=== PATIENT | female | born 1940 | race Caucasian/White ===

== ENCOUNTER 2018-04-06 09:07 | Day surgery (SDC) | payer MEDICARE, OTHER, SELFPAY ==
--- NOTE | 2018-04-04 09:35 | POEE_ITS ---
History of Present Illness Chief Complaint: Progressive decreased vision, left eye Narrative: The patient is a 77-year-old lady who presented with complaints of progressive decreased vision in both eyes at both distance and near. She notes blurred vision in both eyes and significant difficulty with glare. On examination she was noted to have nuclear and cortical cataracts OU with posterior subcapsular cataract in the left eye. Corrected visual acuity measured 20/50 OD, 20/40 OS. She was significantly symptomatic that she desires cataract surgery and attempt to improve and maximize her vision. Of note, she has a history of glaucoma, which is maintained on atenolol OU. NOTE: The Chief Complaint, HPI, Past Medical History, Past Surgical History, Family History, Social History, Medications, and complete Ophthalmic Exam with detailed Assessment and Plan have already been documented in the patient's outpatient ophthalmic record and are not covered again in detail here. PFSH Medical History Cortical cataract of left eye (Acute) Posterior subcapsular age-related cataract of left eye (Acute) Nuclear sclerotic cataract of left eye (Acute) Primary open angle glaucoma (POAG) of left eye, mild stage (Chronic) Meds Home Medications Medication Instructions Recorded Confirmed Type cetirizine 5 mg PO PRN PRN 03/31/18 04/01/18 History halobetasol propionate 1 applic TOPICAL DAILY 03/31/18 04/01/18 History ibandronate [Boniva] 150 mg PO QMONTH 03/31/18 04/01/18 History indomethacin 25 mg PO BID 03/31/18 04/01/18 History levothyroxine 75 mcg PO DAILY 03/31/18 04/01/18 History multivitamin 1 cap PO DAILY 03/31/18 04/01/18 History omeprazole 20 mg PO DAILY 03/31/18 04/01/18 History simvastatin 20 mg PO HS 03/31/18 04/01/18 History timolol 1 drp OPHTHALMIC (EYE) BID 03/31/18 04/01/18 History Allergies Allergy/AdvReac Type Severity Reaction Status Date / Time No Known Allergies Allergy Unverified 04/01/18 13:15 Exam OCULAR EXAM:: Visual acuity at distance: Corrected visual acuity is 20/50 OD, 20 /40 OS. Pupils: Pupils equal, round, and reactive without afferent pupillary defect IOP: 13 OD, 14 OS. Extraocular Motility: Normal Pertinent Slit Lamp Findings: Significant for mildly narrow anterior chamber angles. Pupils dilate to 6 mm OU. 1+ nuclear/cortical cataract is present OD. 2+ nuclear with 2+ cortical cataract and 1+ posterior subcapsular cataract is present OS. Dilated Funduscopic Examination: Disc cupping is 0.7 OD with good rim. Disc cupping is 0.8 OS with some thinning of the inferior rim. The optic nerves have good perfusion and normal color. The retinal vasculature is normal without significant tortuosity or abnormality. The maculas are normal in appearance with normal contour and foveal reflex appropriate for age. The peripheral retina and vitreous are normal. BRIGHTNESS ACUITY TESTING (BAT):: Off left eye 20/40 Low: 20/60 Medium: 20/70 High: 20/400 Assessment and Plan (1) Nuclear sclerotic cataract of left eye: Current visit: No Status: Acute Assessment: Visually significant cataract, left eye. Plan: Cataract extraction with intraocular lens implantation, left eye (2) Posterior subcapsular age-related cataract of left eye: Current visit: No Status: Acute Assessment: Visually significant cataract, left eye. Plan: Cataract extraction with intraocular lens implantation, left eye (3) Cortical cataract of left eye: Current visit: No Status: Acute Assessment: Visually significant cataract, left eye. Plan: Cataract extraction with intraocular lens implantation, left eye Note: NOTE:: The details of the planned surgery, including the risks, indications, limitations,expectations,outcome and possible complications were explained to the patient. The patient understands the complications including, but not limited to: infection, hemorrhage, posterior dislocation of the lens or nuclear fragments which may require the intervention of a vitreoretinal surgeon, possible loss of the eye, or from anesthetic complications. The patient has been made aware of the option of not having surgery, that vision following surgery may not be equal to that prior to surgery, and that the planned surgery may not achieve the intended results. Following this discussion, which the patient appeared to understand, the patient wishes to proceed with cataract surgery with lens implantation of the affected eye to improve and maximize vision.
[2018-04-06 09:10] VITALS: BP 136/72; PULSE 68; RESP 18; TEMP 36.2; O2SAT 97
[2018-04-06] MEDS: Lidocaine 2% Jelly 6 ML SYR (10:17)
[2018-04-06] MEDS: Balanced Salt Soln.-PLUS 500 ML BAG (10:20)
[2018-04-06] MEDS: Povidone-Iodine Ophth 30 ML BTL (10:23)
--- NOTE | 2018-04-06 10:40 | W.PM.DSUDISC ---
Discharge Plan Discharge Details Attending Provider: Bernabe Patel Primary Care Provider: SAY WOMACK Home Meds and New Rx's Prescriptions: No Action cetirizine 10 mg Tablet 5 mg PO PRN PRNRF: 0 timolol 0.5 % Drops 1 drp OPHTHALMIC (EYE) BID RF: 0 simvastatin 20 mg Tablet 20 mg PO HS RF: 0 halobetasol propionate 0.05 % Ointment 1 applic TOPICAL DAILY RF: 0 indomethacin 25 mg Capsule 25 mg PO BID RF: 0 omeprazole 20 mg Capsule,Delayed Release(Dr/Ec) 20 mg PO DAILY RF: 0 multivitamin Capsule 1 cap PO DAILY RF: 0 ibandronate [Boniva] 150 mg Tablet 150 mg PO QMONTH RF: 0 levothyroxine 75 mcg Capsule 75 mcg PO DAILY RF: 0 Discharge Instructions Stand Alone Forms: Post-op Topical Cataract, Francisco Javier Concepcion (DSU) DS: Diagnosis Discharge Diagnosis (1) Nuclear sclerotic cataract of left eye: Status: Resolved (2) Posterior subcapsular age-related cataract of left eye: Status: Resolved (3) Cortical cataract of left eye: Status: Resolved
--- NOTE | 2018-04-06 10:44 | ROE_ITS ---
Date of service: 04/06/18 Time of Service: 10:42 Operative Note DATE OF PROCEDURE: 04/06/18 PRE-OP DIAGNOSIS: Cataract, left eye POST-OP DIAGNOSIS: same PROCEDURE: Cataract extraction using phacoemulsification with intraocular lens implant, left eye SURGEON: Bernabe Patel ANESTHESIA: MAC and local (sub-tenon's anesthetic infiltration) PATHOLOGY: none sent COMPLICATIONS: None Patient was transported to: same day Patient's condition: stable Implants: [employer] / [employer] Tecnis [id number] Indications: Progressive decreased vision due to cataract, left eye Procedure Description: CATARACT SURGERY OPERATIVE REPORT PREOPERATIVE DIAGNOSIS: Nuclear/cortical/posterior subcapsular cataract, left eye, symptomatic POSTOPERATIVE DIAGNOSIS: Same OPERATION: Cataract extraction using phacoemulsification with posterior chamber intraocular lens implant, left eye. IOL: IOL Diploma Pharmacy Technician/Model: [employer] Vision / YUNG Tecnis [id number] IOL Power: + 21.5 diopters IOL Serial Number: [id number] Optic Diameter: 6.0mm Haptic/Overall Diameter: 13.0mm PHACO INFO: Mikal [employer] Vision System with OZil and Active Fluidics Cumulative Dispersed Energy (CDE): 11.42 seconds SURGEON: Bernabe Patel MD, LEANA ANESTHESIA: Monitored Anesthesia Care (MAC), with local sub-tenon's anesthetic infiltration COMPLICATIONS: None SPECIMENS: None INDICATIONS FOR PROCEDURE: The patient is a 77-year-old lady with history of open-angle glaucoma who has developed a significant nuclear cortical and posterior subcapsular cataract in the left eye. She notes progressive decreased vision at both distance and near in both eyes, left eye worse than right. She is significantly symptomatically she desires cataract surgery and attempt to improve and maximize her vision. PROCEDURE: The correct surgical eye was identified and marked as the left eye and the pupil was dilated in the preoperative area using mydriatics, cycloplegics, and NSAIDS (except in aspirin allergic patients). The dilated pupil size was 8.0 mm. Oral sedation was administered in the form of an Imprimis MKO Melt (midazolam 3mg/ketamine 25mg/ondansetron 2mg). The patient was brought to the operating room where cardiopulmonary monitoring was instituted and surgical time-out was performed, confirming the correct operative eye and IOL power. Topical anesthesia was administered and ophthalmic povidone-iodine 5% was instilled into the conjunctival fornices. Lidocaine gel was applied to the cornea and the laina-ocular area was prepped with Betadine 10% solution and draped in the usual sterile fashion for intraocular surgery. Steri-strips were used to cover the lashes and lid margins and an adhesive eye drape was placed. Care was taken to isolate the lashes and lid margins under the Steri-strips and adhesive eye drape. A lid speculum was placed between the lids of the operative eye and the Daphne-Bethanie operating microscope was maneuvered into position. Angella scissors were then used to make a conjunctival buttonhole approximately 6mm posterior to the limbus in the inferonasal quadrant. Blunt dissection was carried out to expose bare sclera, and a blunt-tipped sub-tenon? s anesthesia cannula was introduced and passed posteriorly along the globe where non-preserved plain lidocaine was injected into posterior sub-Tenon?s space. A sideport knife was used to make a paracentesis port at the 12:00 postion and the anterior chamber was filled with Healon GV. A 2.4mm keratome knife was used to create a half-thickness groove at the limbus and then to construct a three-plane near-clear corneal tunnel extending 2.0mm into clear cornea at the 3:00 position. A flap was raised on the anterior capsule and capsulorhexis forceps were used to complete a continuous curvilinear capsulorhexis of 5.5 mm. Balanced salt solution was then used to perform cortical cleaving hydrodissection and nuclear hydrodelineation until the lens could be freely rotated within the capsular bag. The lens nucleus was then disassembled and removed within the capsular bag and iris plane using phacoemulsification. Residual cortical material was removed using the 45-degree angled silicone I/A tip with 0.3mm port. The posterior capsule was carefully polished to remove as much residual lens epithelial cells as safely possible. The capsular bag was then inflated and the anterior chamber deepened with viscoelastic. The lens implant described above was inserted into the capsular bag using the YUNG [place] [employer] Injector. A Kuglen hook was used to dial the IOL into position. Residual viscoelastic was then removed first from posterior to the IOL, then from the anterior chamber using the I/A handpiece. The lens implant was noted to center nicely within the capsular bag. The incisions were stromally hydrated , and the anterior chamber was reformed using BSS. Then 0.4cc of moxifloxacin 1.5mg/ml were injected into the capsular bag and anterior chamber. The incisions were checked with a Weck spear and found to be secure. Several drops of ophthalmic povidone-iodine 5% were then applied to the eye followed by two drops of Imprimis combination moxifloxacin/dexamethasone solution. The drapes were removed and a clear plastic protective eye shield was placed over the eye. The patient was then returned to [facility] in stable condition.
[2018-04-06 11:00] VITALS: BP 125/75; PULSE 63; RESP 18; TEMP 36.4; O2SAT 94
== END 2018-04-06 11:02 | disposition home or self-care (01) ==
LOC: SUR 09:10
PROVIDERS: PCP Internal Medicine; Visit Provider Ophthalmology
PROC: (CPT 66984; principal; 2018-04-06 11:30)
DX: H25.812 Combined forms of age-related cataract, left eye (principal); H40.10X0 Unspecified open-angle glaucoma, stage unspecified
CPT/HCPCS: 66984; V2632

== ENCOUNTER 2018-04-20 08:05 | Day surgery (SDC) | payer MEDICARE, OTHER, SELFPAY ==
--- NOTE | 2018-04-18 09:32 | POEE_ITS ---
History of Present Illness Chief Complaint: Progressive decreased vision, right eye Narrative: The patient is a 77-year old lady with history of bilateral nuclear and cortical cataracts in both eyes with posterior subcapsular cataract of the left eye. She had noted progressive decreased vision in both distance and near and had significant difficulty with reading and also driving. Visual acuity measured 20/40 in each eye, but with significant glare disability. She felt she was symptomatic enough that she wished to proceed with cataract surgery which was performed OS on 04/06/2018. Postoperatively she has regained uncorrected vision of 20/30 OS, correctable to 20/20. She now presents for cataract surgery in the right eye. NOTE: The Chief Complaint, HPI, Past Medical History, Past Surgical History, Family History, Social History, Medications, and complete Ophthalmic Exam with detailed Assessment and Plan have already been documented in the patient's outpatient ophthalmic record and are not covered again in detail here. PFSH Medical History Cortical cataract of right eye (Acute) Nuclear sclerotic cataract of right eye (Acute) Primary open angle glaucoma (POAG) of left eye, mild stage (Chronic) Social History Smoking/Tobacco Use Status: Never Surgical History Status post cataract extraction and insertion of intraocular lens of left eye ( Chronic 04/06/18) Meds Home Medications Medication Instructions Recorded Confirmed Type cetirizine 5 mg PO PRN PRN 03/31/18 04/06/18 History halobetasol propionate 1 applic TOPICAL DAILY 03/31/18 04/06/18 History ibandronate [Boniva] 150 mg PO QMONTH 03/31/18 04/06/18 History indomethacin 25 mg PO BID 03/31/18 04/06/18 History levothyroxine 75 mcg PO DAILY 03/31/18 04/06/18 History multivitamin 1 cap PO DAILY 03/31/18 04/06/18 History omeprazole 20 mg PO DAILY 03/31/18 04/06/18 History simvastatin 20 mg PO HS 03/31/18 04/06/18 History timolol 1 drp OPHTHALMIC (EYE) BID 03/31/18 04/06/18 History Allergies Allergy/AdvReac Type Severity Reaction Status Date / Time No Known Allergies Allergy Unverified 04/06/18 09:36 Exam OCULAR EXAM:: Visual acuity at distance: Best corrected 20/40 right eye, 20/20 left eye Pupils: Pupils equal, round, and reactive without afferent pupillary defect IOP: 13 OD 14 OS Extraocular Motility: Normal Pertinent Slit Lamp Findings: Significant for pupils dilating to 6 mm OU. Mildly narrow angles in the right eye. 1+ nuclear and cortical cataract is present OD. A well-positioned PCIOL is present OS with some mild residual central posterior capsular haze. Dilated Funduscopic Examination: Disc cupping is 0.7 OD with good rim, 0.8 OS with some thinning of the inferior rim. The optic nerves have good perfusion and normal color. The retinal vasculature is normal without significant tortuosity or abnormality. The maculas are normal in appearance with normal contour and foveal reflex appropriate for age. The peripheral retina and vitreous are normal. BRIGHTNESS ACUITY TESTING (BAT):: Off right eye 20/40 Low: 20/50 Medium: 20/60 High: 20/70 Assessment and Plan (1) Nuclear sclerotic cataract of right eye: Current visit: No Status: Acute Assessment: Visually significant cataract, right eye. Plan: Cataract extraction with intraocular lens implantation, right eye (2) Cortical cataract of right eye: Current visit: No Status: Acute Assessment: Visually significant cataract, right eye. Plan: Cataract extraction with intraocular lens implantation, right eye Note: NOTE:: The details of the planned surgery, including the risks, indications, limitations,expectations,outcome and possible complications were explained to the patient. The patient understands the complications including, but not limited to: infection, hemorrhage, posterior dislocation of the lens or nuclear fragments which may require the intervention of a vitreoretinal surgeon, possible loss of the eye, or from anesthetic complications. The patient has been made aware of the option of not having surgery, that vision following surgery may not be equal to that prior to surgery, and that the planned surgery may not achieve the intended results. Following this discussion, which the patient appeared to understand, the patient wishes to proceed with cataract surgery with lens implantation of the affected eye to improve and maximize vision.
[2018-04-20 08:29] VITALS: BP 144/85; PULSE 63; RESP 18; TEMP 36.6; O2SAT 96
[2018-04-20] MEDS: Lidocaine 2% Jelly 6 ML SYR (09:48)
[2018-04-20] MEDS: Povidone-Iodine Ophth 30 ML BTL ×2 (09:48→10:11)
[2018-04-20] MEDS: Lidocaine 1% Pres-Free 5 ML VIAL (09:54)
[2018-04-20] MEDS: Balanced Salt Soln.-PLUS 500 ML BAG (09:55)
--- NOTE | 2018-04-20 10:20 | W.PM.DSUDISC ---
Discharge Plan Discharge Details Attending Provider: Bernabe Patel Primary Care Provider: SAY WOMACK Home Meds and New Rx's Prescriptions: No Action cetirizine 10 mg Tablet 5 mg PO PRN PRNRF: 0 timolol 0.5 % Drops 1 drp OPHTHALMIC (EYE) BID RF: 0 simvastatin 20 mg Tablet 20 mg PO HS RF: 0 halobetasol propionate 0.05 % Ointment 1 applic TOPICAL DAILY RF: 0 indomethacin 25 mg Capsule 25 mg PO BID RF: 0 omeprazole 20 mg Capsule,Delayed Release(Dr/Ec) 20 mg PO DAILY RF: 0 multivitamin Capsule 1 cap PO DAILY RF: 0 ibandronate [Boniva] 150 mg Tablet 150 mg PO QMONTH RF: 0 levothyroxine 75 mcg Capsule 75 mcg PO DAILY RF: 0 Discharge Instructions Stand Alone Forms: Post-op Topical Cataract, Francisco Javier Concepcion (DSU) DS: Diagnosis Discharge Diagnosis (1) Nuclear sclerotic cataract of right eye: Status: Resolved (2) Cortical cataract of right eye: Status: Resolved (3) Status post cataract extraction and insertion of intraocular lens of right eye: Status: Chronic
--- NOTE | 2018-04-20 10:22 | W.PM.OP ---
Date of service: 04/20/18 Time of Service: 10:22 Operative Note DATE OF PROCEDURE: 04/20/18 PRE-OP DIAGNOSIS: Cataract, right eye POST-OP DIAGNOSIS: same SURGEON: Bernabe Patel ANESTHESIA: MAC and local (sub-tenon's anesthetic infiltration) PATHOLOGY: none sent COMPLICATIONS: None Patient was transported to: same day Patient's condition: stable Implants: [employer] / [employer] Tecnis [id number] Indications: Progressive decreased vision due to cataract, right eye Procedure Description: CATARACT SURGERY OPERATIVE REPORT PREOPERATIVE DIAGNOSIS: Nuclear/cortical/posterior subcapsular cataract, right eye POSTOPERATIVE DIAGNOSIS: Same OPERATION: Cataract extraction using phacoemulsification with posterior chamber intraocular lens implant, right eye. IOL: IOL Bed And Breakfast Operator/Model: [employer] Vision / YUNG [employer] ZCB00 IOL Power: + 20.50 diopters IOL Serial Number: [id number] Optic Diameter: 6.0mm Haptic/Overall Diameter: 13.0mm PHACO INFO: Mikal [employer] Vision System with OZil and Active Fluidics Cumulative Dispersed Energy (CDE): 6.83 seconds SURGEON: Bernabe Patel MD, LEANA ANESTHESIA: Monitored Anesthesia Care (MAC), with local sub-tenon's anesthetic infiltration COMPLICATIONS: None SPECIMENS: None INDICATIONS FOR PROCEDURE: The patient is a 77-year-old female with history of symptomatic bilateral nuclear cortical and posterior subcapsular cataracts. She was significantly symptomatic that she desired cataract surgery. She is Ardie undergone cataract surgery in her left eye on 04/06/2018. She now presents for cataract surgery in her right eye. PROCEDURE: The correct surgical eye was identified and marked as the right eye and the pupil was dilated in the preoperative area using mydriatics, cycloplegics, and NSAIDS (except in aspirin allergic patients). The dilated pupil size was 8.0 mm. Oral sedation was administered in the form of an Imprimis MKO Melt (midazolam 3mg/ketamine 25mg/ondansetron 2mg). The patient was brought to the operating room where cardiopulmonary monitoring was instituted and surgical time-out was performed, confirming the correct operative eye and IOL power. Topical anesthesia was administered and ophthalmic povidone-iodine 5% was instilled into the conjunctival fornices. Lidocaine gel was applied to the cornea and the laina-ocular area was prepped with Betadine 10% solution and draped in the usual sterile fashion for intraocular surgery. Steri-strips were used to cover the lashes and lid margins and an adhesive eye drape was placed. Care was taken to isolate the lashes and lid margins under the Steri-strips and adhesive eye drape. A lid speculum was placed between the lids of the operative eye and the Daphne-Bethanie operating microscope was maneuvered into position. Angella scissors were then used to make a conjunctival buttonhole approximately 6mm posterior to the limbus in the inferonasal quadrant. Blunt dissection was carried out to expose bare sclera, and a blunt-tipped sub-tenon?s anesthesia cannula was introduced and passed posteriorly along the globe where non-preserved plain lidocaine was injected into posterior sub-Tenon?s space. A sideport knife was used to make a paracentesis port at the 7:00 postion and the anterior chamber was filled with Healon GV. A 2.4mm keratome knife was used to create a half-thickness groove at the limbus and then to construct a three-plane near-clear corneal tunnel extending 2.0mm into clear cornea at the 10:00 position. A flap was raised on the anterior capsule and capsulorhexis forceps were used to complete a continuous curvilinear capsulorhexis of 5.0 mm. Balanced salt solution was then used to perform cortical cleaving hydrodissection and nuclear hydrodelineation until the lens could be freely rotated within the capsular bag. The lens nucleus was then disassembled and removed within the capsular bag and iris plane using phacoemulsification. Residual cortical material was removed using the 45-degree angled silicone I/A tip with 0.3mm port. The posterior capsule was carefully polished to remove as much residual lens epithelial cells as safely possible. The capsular bag was then inflated and the anterior chamber deepened with viscoelastic. The lens implant described above was inserted into the capsular bag using the YUNG [place] Injector. A Kuglen hook was used to dial the IOL into position. Residual viscoelastic was then removed first from posterior to the IOL, then from the anterior chamber using the I/A handpiece. The lens implant was noted to center nicely within the capsular bag. The incisions were stromally hydrated, and the anterior chamber was reformed using BSS. Then 0.4cc of moxifloxacin 1.5mg/ml were injected into the capsular bag and anterior chamber. The incisions were checked with a Weck spear and found to be secure. Several drops of ophthalmic povidone-iodine 5% were then applied to the eye followed by two drops of Imprimis combination moxifloxacin/dexamethasone solution. The drapes were removed and a clear plastic protective eye shield was placed over the eye. The patient was then returned to Same Day Surgery in stable condition.
--- NOTE | 2018-04-20 10:25 | ROE_ITS ---
Date of service: 04/20/18 Time of Service: 10:22 Operative Note DATE OF PROCEDURE: 04/20/18 PRE-OP DIAGNOSIS: Cataract, right eye POST-OP DIAGNOSIS: same SURGEON: Bernabe Patel ANESTHESIA: MAC and local (sub-tenon's anesthetic infiltration) PATHOLOGY: none sent COMPLICATIONS: None Patient was transported to: same day Patient's condition: stable Implants: [employer] / [employer] Tecnis ZCB00 Indications: Progressive decreased vision due to cataract, right eye Procedure Description: CATARACT SURGERY OPERATIVE REPORT PREOPERATIVE DIAGNOSIS: Nuclear/cortical/posterior subcapsular cataract, right eye POSTOPERATIVE DIAGNOSIS: Same OPERATION: Cataract extraction using phacoemulsification with posterior chamber intraocular lens implant, right eye. IOL: IOL Corporate Safety Manager/Model: [employer] / YUNG [employer]ecnis ZCB00 IOL Power: + 20.50 diopters IOL Serial Number: [id number] Optic Diameter: 6.0mm Haptic/Overall Diameter: 13.0mm PHACO INFO: [employer] Vision System with OZil and [employer] Cumulative Dispersed Energy (CDE): 6.83 seconds SURGEON: Bernabe Patel MD, LEANA ANESTHESIA: Monitored Anesthesia Care (MAC), with local sub-tenon's anesthetic infiltration COMPLICATIONS: None SPECIMENS: None INDICATIONS FOR PROCEDURE: The patient is a 77-year-old female with history of symptomatic bilateral nuclear cortical and posterior subcapsular cataracts. She was significantly symptomatic that she desired cataract surgery. She is Ardie undergone cataract surgery in her left eye on 04/06/2018. She now presents for cataract surgery in her right eye. PROCEDURE: The correct surgical eye was identified and marked as the right eye and the pupil was dilated in the preoperative area using mydriatics, cycloplegics, and NSAIDS (except in aspirin allergic patients). The dilated pupil size was 8.0 mm. Oral sedation was administered in the form of an Imprimis MKO Melt (midazolam 3mg/ketamine 25mg/ondansetron 2mg). The patient was brought to the operating room where cardiopulmonary monitoring was instituted and surgical time-out was performed, confirming the correct operative eye and IOL power. Topical anesthesia was administered and ophthalmic povidone-iodine 5% was instilled into the conjunctival fornices. Lidocaine gel was applied to the cornea and the laina-ocular area was prepped with Betadine 10% solution and draped in the usual sterile fashion for intraocular surgery. Steri-strips were used to cover the lashes and lid margins and an adhesive eye drape was placed. Care was taken to isolate the lashes and lid margins under the Steri-strips and adhesive eye drape. A lid speculum was placed between the lids of the operative eye and the Daphne-Bethanie operating microscope was maneuvered into position. Angella scissors were then used to make a conjunctival buttonhole approximately 6mm posterior to the limbus in the inferonasal quadrant. Blunt dissection was carried out to expose bare sclera, and a blunt-tipped sub-tenon? s anesthesia cannula was introduced and passed posteriorly along the globe where non-preserved plain lidocaine was injected into posterior sub-Tenon?s space. A sideport knife was used to make a paracentesis port at the 7:00 postion and the anterior chamber was filled with Healon GV. A 2.4mm keratome knife was used to create a half-thickness groove at the limbus and then to construct a three-plane near-clear corneal tunnel extending 2.0mm into clear cornea at the 10:00 position. A flap was raised on the anterior capsule and capsulorhexis forceps were used to complete a continuous curvilinear capsulorhexis of 5.0 mm. Balanced salt solution was then used to perform cortical cleaving hydrodissection and nuclear hydrodelineation until the lens could be freely rotated within the capsular bag. The lens nucleus was then disassembled and removed within the capsular bag and iris plane using phacoemulsification. Residual cortical material was removed using the 45-degree angled silicone I/A tip with 0.3mm port. The posterior capsule was carefully polished to remove as much residual lens epithelial cells as safely possible. The capsular bag was then inflated and the anterior chamber deepened with viscoelastic. The lens implant described above was inserted into the capsular bag using the YUNG [place] Injector. A Kuglen hook was used to dial the IOL into position. Residual viscoelastic was then removed first from posterior to the IOL, then from the anterior chamber using the I/A handpiece. The lens implant was noted to center nicely within the capsular bag. The incisions were stromally hydrated , and the anterior chamber was reformed using BSS. Then 0.4cc of moxifloxacin 1.5mg/ml were injected into the capsular bag and anterior chamber. The incisions were checked with a Weck spear and found to be secure. Several drops of ophthalmic povidone-iodine 5% were then applied to the eye followed by two drops of Imprimis combination moxifloxacin/dexamethasone solution. The drapes were removed and a clear plastic protective eye shield was placed over the eye. The patient was then returned to [facility] in stable condition.
[2018-04-20 10:45] VITALS: BP 130/71; PULSE 64; RESP 16; TEMP 36.6; O2SAT 95
== END 2018-04-20 10:45 | disposition home or self-care (01) ==
LOC: SUR 08:05
PROVIDERS: PCP Internal Medicine; Visit Provider Ophthalmology
PROC: (CPT 66984; principal; 2018-04-20 10:30)
DX: H25.811 Combined forms of age-related cataract, right eye (principal); Z98.42 Cataract extraction status, left eye; Z96.1 Presence of intraocular lens
CPT/HCPCS: 66984; V2632